=== PATIENT | male | born 1965 | race Caucasian/White ===

== ENCOUNTER 2020-12-14 00:52 | Inpatient (IN) | payer BC ==
[~2020-12-14] VITALS: Ht 185.4 cm; Wt 86.6 kg
--- NOTE | 2020-12-14 00:52 | NUR ---
"irregular heart beat" since 11pm today, pt aaox4, denies any sob. placed on monitor, not in acute distress, pending er provider eval
[2020-12-14] MEDS ORDERED: IV NS 0.9% 1,000 ML BAG IV ONE (01:00)
[2020-12-14 01:15] LABS: BASOPHILS % (AUTO) 0.6 % (0.0-2.0); EOSINOPHILS % (AUTO) 3.9 % (0.0-6.0); HEMATOCRIT 45 % (39-51); LYMPHOCYTES # (AUTO) 2.2 /CMM (0.8-4.8); LYMPHOCYTES % (AUTO) 28.2 % (20.0-44.0); MEAN CORPUSCULAR HGB CONC 34 g/dl (31.0-36.0); MEAN CORPUSCULAR VOLUME 90 fL (80-96); MONOCYTES # (AUTO) 0.7 /CMM (0.1-1.30); MONOCYTES % (AUTO) 8.9 % (2.0-12.0); NEUTROPHILS # (AUTO) 4.5 /CMM (1.8-8.9); NEUTROPHILS % (AUTO) 58.4 % (43.0-81.0); PLATELET COUNT (AUTO) 316 /CMM (150-450); RED BLOOD CELL COUNT(AUTO) 5.02 MIL/uL (4.5-6.0); WHITE BLOOD COUNT (AUTO) 7.7 K/uL (4.3-11.0)
[2020-12-14 01:23] LABS: CALCIUM, SERUM 8.7 mg/dL (8.5-10.1); CARBON DIOXIDE 26 mmol/L (21-32); CHLORIDE 105 mmol/L (98-107); CREATININE 1.1 mg/dL (0.6-1.3); GLUCOSE 111 mg/dL (74-106); SODIUM SERUM 138 mmol/L (136-145); UREA NITROGEN, BLOOD 28 mg/dL (7-18)
[2020-12-14 01:36] LABS: B-TYPE NATRIURETIC PEPTIDE 444 PG/ML (0-125)
[2020-12-14 01:43] LABS: MAGNESIUM 1.9 mg/dL (1.8-2.4)
[2020-12-14] MEDS ORDERED: DILTIAZEM HCL 25 MG IV ONE (01:52)
[2020-12-14 01:54] LABS: THYROID STIMULATING HORMONE 2.113 uIU/mL (0.358-3.74)
[2020-12-14] MEDS ORDERED: DILTIAZEM HCL 50 MG IV IV ONE (02:00)
--- NOTE | 2020-12-14 02:15 | NUR ---
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
[2020-12-14] MEDS ORDERED: MAGNESIUM HYDROXIDE 30 ML UDC PO PRN (02:30)
[2020-12-14] MEDS ORDERED: Z GUARD REMEDY 2 OZ OINT TP PRN (02:30)
[2020-12-14] MEDS ORDERED: ACETAMINOPHEN 325 MG TABLET PO PRN (02:30)
[2020-12-14] MEDS ORDERED: ONDANSETRON HCL/PF 4 MG/2 ML VIAL IVP PRN (02:30)
[2020-12-14] MEDS ORDERED: MAG HYDROX/AL HYDROX/SIMETH 30 ML UDC PO PRN (02:30)
--- NOTE | 2020-12-14 05:57 | NUR ---
PER NURSING SUP, BED NOT AVAILABLE UNTIL CHANGE OF SHIFT.
--- NOTE | 2020-12-14 07:05 | NUR ---
REPORT GIVEN TO ZAHEER MONET FOR DOR[facility]
--- NOTE | 2020-12-14 07:07 | NUR ---
RECEIVED REPORT FROM CHIKI ONEAL FOR [facility]. PT IS AAOX4, NOT IN RESPIRATORY DISTRESS, V/S STABLE, KEPT RESTED AND COMFORTABLE. WILL CONTINUE TO MONITOR.
[2020-12-14] MEDS ORDERED: PANTOPRAZOLE 40 MG TABLET.DR PO ONE (07:09)
[2020-12-14] MEDS: PANTOPRAZOLE 40 MG TABLET.DR PO SCH (07:13)
--- NOTE | 2020-12-14 07:45 | NUR ---
HORSE WRANGLER AT BEDSIDE FOR 2D ECHO.
--- NOTE | 2020-12-14 07:46 | NUR ---
BED 312-1
--- NOTE | 2020-12-14 08:00 | NUR ---
REPORT GIVEN TO CHIKI GARZA FOR DORITA.
[2020-12-14 08:30] VITALS: BP 133/80
[2020-12-14] MEDS ORDERED: APIXABAN 5 MG TABLET PO SCH (09:00)
[2020-12-14] MEDS ORDERED: DILTIAZEM HCL 30 MG TABLET PO ONE (10:41)
[2020-12-14] MEDS: DILTIAZEM HCL CD 120 MG PO SCH (11:06)
[2020-12-14 14:18] VITALS: BP 133/80
[2020-12-14] MEDS ORDERED: DILTIAZEM HCL CD 120 MG PO ONE (15:30)
[2020-12-14 16:00] VITALS: BP 145/89
[2020-12-14] MEDS ORDERED: AMIODARONE 450 MG in IV D5W 250 ML IV PRN (16:00)
[2020-12-14] MEDS ORDERED: AMIODARONE 150 MG in IV D5W 100 ML IV ONE (16:00)
[2020-12-14 16:15] VITALS: BP 144/82
--- NOTE | 2020-12-14 16:55 | NUR ---
GRAIN DRIER NOTE RECEIVED PATIENT FROM [facility].REPORT GIVEN BY KANE MONET .PATIENT IS ADMITTED WITH A AFIB.TRANSFERRED TO [facility] FOR AMIODARONE INFUSION FOR UNCONTROLLED AFIB.HR VARYING FROM 80-130'S.PATIENT AXOX4.ON ROOM AIR.NO SOB NO DISTRESS NOTED.IV LINE IS INTACT.SAFETY MEASURES IN PLACE.CALL LIGHT IN REACH.BED IS LOW AND IN LOWEST POSITION.PATIENT IS AMBULATORY WITH [facility] GATE.WILL CONTINUE TO MONITOR. Addendum: 12/14/20 at 1842 by PAULINO TIJERINA RN [facility] STATUS
--- NOTE | 2020-12-14 16:56 | NUR ---
ENDING NOTES PATIENT SAFELY TRANSFERRED TO [facility] FOR IV AMIODARONE ORDERS & OVER NIGHT OBSERVATION, ALL BELONGINGS TRANSFERRED WITH PATIENT TO [facility] RM #104, PULSE 88, NO SOB NOTED, STATED NO PAIN, COOPERATIVE AND ABLE TO MAKE NEEDS KNOWN. Addendum: 12/14/20 at 1702 by KANE HOLDEN RN PATIENT BEDSIDE REPORT GIVEN TO PAULINO MONET REPORT AND EDUARD TERRY RN CHARGE NURSE RECEIVED PATIENT , SAFE TRANSFER MOVED BED WITH PATIENT TO ROOM 104 SAFELY, IV SITE R/AC INTACT PATENT.
[2020-12-14] MEDS: AMIODARONE 450 MG in IV D5W 250 ML IV PRN (17:30)
--- NOTE | 2020-12-14 17:42 | NUR ---
RN CLOSING NOTES PATIENT HAS DISCOLORATION NOTED ON HIS UPPER LEFT SHOULDER AREA AND STATED HE REGULARLY DOES CUPPING TO DETOX AND IT LEFT A DISCOLORED JORDYN ON THE SKIN. PLEASE NOTE
--- NOTE | 2020-12-14 17:50 | NUR ---
[facility] RN NOTE AMIODARONE WAS NOT SCANNING .PHARMACY MADE AWARE.RE ENTERED THE ORDER AND RECEIVED NEW LABEL FROM PHARMACY.TO CLARIFY AMIODARONE AND CARDIZEM FROM PHARMACY SUSIE.WILL FOLLOW UP.
--- NOTE | 2020-12-14 17:55 | NUR ---
[facility] RN NOTE CALL MADE TO SPOKE TO MANAGER SERVICING .MADE AWARE THAT PATIENT ON AMIODARONE DRIP AND CARDIZEM PO TO CLARIFY PER PHARMACY REQUEST.OK TO KEEP BOTH MEDICATION.WILL CONTINUE TO MONITOR.
--- NOTE | 2020-12-14 18:40 | NUR ---
[facility] RN NOTE PATIENT IN BED.ONGOING AMIODARONE DRIP WITH 33.3ML/HR( PER PHARMACY,SPOKE TO [facility]).NO SOB NO DISTRESS NO CHEST PAIN NOTED.ON TELE MONITOR A FIB WITH HR 80-120'S.CALL LIGHT IN REACH.SAFETY MEASURES IMPLEMENTED.SRX2.WILL ENDORSE TO PM NURSE FOR [facility]ORITA.
--- NOTE | 2020-12-14 19:20 | NUR ---
RN OPENING NOTES: Rec'd pt in bed, A&Ox4, able to make needs known0. On room air, tolerating well. No resp distress noted at this time. Uncontrolled A-fib on tele monitor. Pt ambulatory. RAC #20 patent and flushed w/ Amio drip infusing at 33.33ml/hr. Dressing c/d/i. Safety measures in place. Will continue to monitor.
[2020-12-14 20:00] VITALS: BP 116/70
[2020-12-15] VITALS: BP 116/69
--- NOTE | 2020-12-15 03:04 | NUR ---
VAMP MAKER NOTE: Pt converted from A-fib to SR. Will continue to monitor.
[2020-12-15 04:00] VITALS: BP 115/79
[2020-12-15] MEDS: AMIODARONE 450 MG in IV D5W 250 ML IV PRN (05:40)
[2020-12-15 07:00] LABS: BASOPHILS % (AUTO) 0.4 % (0.0-2.0); EOSINOPHILS % (AUTO) 3.8 % (0.0-6.0); HEMATOCRIT 45 % (39-51); HEMOGLOBIN 15.2 g/dL (13.5-17.5); LYMPHOCYTES # (AUTO) 1.6 /CMM (0.8-4.8); LYMPHOCYTES % (AUTO) 24.9 % (20.0-44.0); MEAN CORPUSCULAR HGB CONC 34 g/dl (31.0-36.0); MEAN CORPUSCULAR VOLUME 90 fL (80-96); MONOCYTES # (AUTO) 0.5 /CMM (0.1-1.30); MONOCYTES % (AUTO) 8.2 % (2.0-12.0); NEUTROPHILS % (AUTO) 62.7 % (43.0-81.0); PLATELET COUNT (AUTO) 317 /CMM (150-450); RED BLOOD CELL COUNT(AUTO) 4.99 MIL/uL (4.5-6.0); WHITE BLOOD COUNT (AUTO) 6.4 K/uL (4.3-11.0)
--- NOTE | 2020-12-15 07:15 | NUR ---
RN Opening Note Patient received in bed, A&Ox4, able to make needs known. Patient is on room air, tolerating well. No respiratory distress noted at this time. Pt ambulatory. RAC #20 patent and flushed with Amio drip infusing at 0.5 ml/hr. Safety measures implemented, bed locked in lowest position, side rails up x2, call light within reach. Will continue to monitor and provide care throughout shift.
[2020-12-15 07:41] LABS: CALCIUM, SERUM 8.8 mg/dL (8.5-10.1); CREATININE 0.9 mg/dL (0.6-1.3); PHOSPHORUS 3.1 mg/dL (2.5-4.9); POTASSIUM 3.6 mmol/L (3.5-5.1)
[2020-12-15 07:56] LABS: THYROID STIMULATING HORMONE 1.128 uIU/mL (0.358-3.74)
[2020-12-15 08:00] VITALS: BP 115/76
[2020-12-15] MEDS ORDERED: APIXABAN 5 MG TABLET PO SCH (09:00)
[2020-12-15] MEDS: DILTIAZEM HCL CD 120 MG PO SCH (09:55)
[2020-12-15] MEDS: PANTOPRAZOLE 40 MG TABLET.DR PO SCH (09:56)
[2020-12-15] MEDS ORDERED: METOPROLOL SUCCINATE 25 MG TAB.SR.24H PO SCH (10:00)
[2020-12-15 12:00] VITALS: BP 122/74
--- NOTE | 2020-12-15 15:15 | NUR ---
patient discharged from hospital in stable condition. patient had no complaints of drowsiness and vital signs within normal limits prior to discharge. md approved patient to drive self home. patient discharge paperwork and instructions provided for client prior to discharge. prescription given to patient to retrieve at local pharmacy.
== END 2020-12-15 15:00 | disposition home or self-care (01) | DRG 308 ==
LOC: ER 00:56 → TRANSITION 03:07 → MED 07:51 → TELE 08:41 → TELE-TD 16:54 → TELE1 12-15 08:18
PROVIDERS: ADMIT Student in an Organized Health Care Education/Training Program; ATTEND Internal Medicine
DX: I48.0 Paroxysmal atrial fibrillation (principal); N17.0 Acute kidney failure with tubular necrosis; Z88.0 Allergy status to penicillin; E86.0 Dehydration; I08.0 Rheumatic disorders of both mitral and aortic valves
CPT/HCPCS: 36415; 71045-TC; 80048-TC; 80061-TC; 83735-TC; 83880; 84100-TC; 84439-TC; 84443-TC; 84481; 84484-TC; 85025-TC; 85610-TC; 85730-TC; 87081-TC; 93307-TC; C9803; G0378; J0282; J2405; J3490; J7030; J7060